=== PATIENT | female | born 1970 | race Caucasian/White ===

== ENCOUNTER 2021-03-14 14:55 | Outpatient (REF) | payer OTHER, SELFPAY ==
[2021-03-19 01:06] LABS: HPV mRNA E6/E7 rflx Not Detected (Not Detected)
== END 2021-03-14 14:56 | disposition home or self-care (01) ==
LOC: HO.LNP 14:55
PROVIDERS: Visit Provider Internal Medicine
DX: Z12.4 Encounter for screening for malignant neoplasm of cervix (principal); Z11.51 Encounter for screening for human papillomavirus (HPV)
CPT/HCPCS: 87624; 88142

== ENCOUNTER 2021-05-06 09:38 | Outpatient (REF) | payer OTHER, SELFPAY ==
--- NOTE | ~2021-05-06 | MM_ITS ---
EXAMINATION: MM SCREENING DIGITAL BREAST TOMOSYNTHESIS, BILATERAL CLINICAL INFORMATION: Screening. Asymptomatic. The lifetime risk of breast cancer based on the Tyrer-Cuzick Model is 12%. COMPARISON: Mammography: 12/20/2018, outside mammography 09/29/2016, 02/03/2008 ([facility], [place], [place]). TECHNIQUE: Digital breast tomosynthesis is performed in both the craniocaudal and mediolateral oblique views along with computer-aided detection (CAD). Synthesized 2D images are generated from the tomosynthesis. Additional left MLO view is provided. FINDINGS: There are scattered areas of fibroglandular density (ACR BI-RADS breast composition Category b). There are no significant masses, abnormal calcifications, or other abnormalities. Parenchymal pattern is similar to prior studies. There is no developing density or architectural abnormality. The axilla and skin contours are unremarkable. No significant changes. MM/MM tomosynthesis screening BI IMPRESSION: No mammographic evidence of malignancy. ASSESSMENT: BI-RADS 1: Negative RECOMMENDATION: Routine annual mammography screening. This patient's information was entered into a reminder system with a target due date for their next mammogram.
== END 2021-05-06 09:39 | disposition home or self-care (01) ==
LOC: HO.MAMMO 09:38
PROVIDERS: PCP Internal Medicine; Visit Provider Internal Medicine
DX: Z12.31 Encounter for screening mammogram for malignant neoplasm of breast (principal)
CPT/HCPCS: 77063; 77067

== ENCOUNTER 2022-05-12 09:56 | Outpatient (REF) | payer OTHER, SELFPAY ==
--- NOTE | ~2022-05-12 | MM_ITS ---
EXAMINATION: MM SCREENING DIGITAL BREAST TOMOSYNTHESIS, BILATERAL CLINICAL INFORMATION: Screening. Asymptomatic. The lifetime risk of breast cancer based on the Tyrer-Cuzick Model is 12%. COMPARISON: Mammography: 05/06/2021, 12/01/2018, 09/29/2016 TECHNIQUE: Digital breast tomosynthesis is performed in both the craniocaudal and mediolateral oblique views along with computer-aided detection (CAD). Synthesized 2D images are generated from the tomosynthesis. FINDINGS: There are scattered areas of fibroglandular density (ACR BI-RADS breast composition Category b). There are no significant masses, abnormal calcifications, or other abnormalities. No developing density or architectural abnormality. Parenchymal pattern is similar to prior exams. The axilla and skin contours are unremarkable. MM/MM tomosynthesis screening BI IMPRESSION: No mammographic evidence of malignancy. ASSESSMENT: BI-RADS 1: Negative RECOMMENDATION: Routine annual mammography screening. This patient's information was entered into a reminder system with a target due date for their next mammogram.
== END 2022-05-12 09:57 | disposition home or self-care (01) ==
LOC: HO.MAMMO 09:56
PROVIDERS: Visit Provider Internal Medicine
DX: Z12.31 Encounter for screening mammogram for malignant neoplasm of breast (principal)
CPT/HCPCS: 77063; 77067

== ENCOUNTER 2023-03-16 11:34 | Outpatient (AMB) | payer OTHER, SELFPAY ==
--- NOTE | 2023-03-16 13:04 | AM.OFFWIN_ITS ---
Intake Vital Signs 03/16/23 13:10 Height 5 ft 6.75 in BP 120/68 Blood Pressure Location Lt brachial Position Sitting Pulse 100 Pulse Source Pulse Oximeter Temp 97.9 F Temp Source Temporal Artery Scan Pulse Oximetry (%) 94 Oxygen Delivery Method Room Air Intake Visit Reasons: EST/persistent cough [phone] Intake Note: pt is here for c/o persistent cough Patient Tobacco Use Status: Never used Tobacco Allergies No Known Allergies Allergy (Verified 03/16/23 13:38) Medication List - Last Reconciled 03/16/23 by Scot Samaniego MD No Known Home Meds Do you need a note to return to daycare/school/sports/work: Yes HPI EST/persistent cough [phone] HPI Details Patient presents for a sick visit. Reporting symptoms of sinus congestion, sore throat and difficulty swallowing. Low-grade fever. No family member is sick. No recent travel. Patient reports symptoms of malaise and fatigue. [facility] Medical History Acquired hallux limitus of both feet Colon cancer screening Ingrown toenail of both feet Hughes's neuroma of both feet Obesity (BMI 30.0-34.9) Osteoarthritis of ankle or foot Family History Sister Mental health disorder Social History Housing: House Patient Tobacco Use Status: Never used Tobacco e-Cigarette/Vaping Use: Never Used Current occupational status: employed Cognitive needs: No Hearing needs: No Vision needs: No Female Reproductive History Menstrual Date of menopause: 01/15/16 Physical Exam Vital Signs: Last Vital Signs Temp 97.9 F 03/16/23 13:10 Pulse 100 03/16/23 13:10 BP 120/68 03/16/23 13:10 Pulse Ox 94 03/16/23 13:10 Oxygen Delivery Method Room Air 03/16/23 13:10 Const General: cooperative and healthy appearing Nutritional Appearance: well nourished Orientation/consciousness: patient oriented x3 Limitations: no limitations HEENT Head: Yes normal to inspection Eyes General: appearance normal, both eyes and all related structures Neck Neck: Yes normal visual inspection Chest Chest palpation & inspection: normal palpation of entire chest wall Resp Effort & Inspection: normal respiratory effort Neuro General: patient oriented x3 Assessment & Plan Assessment & Plan (1) Upper respiratory tract infection: Code(s): J06.9 - Acute upper respiratory infection, unspecified Plan Antibiotics ordered. Increase fluid intake. Tylenol for aches and pains. If symptoms worsen, follow-up here for a recheck. Chest x-ray was reviewed by me personally. No infiltrate seen. Orders: Orders XR chest 2V Today R05.9 - Cough, unspecified Coding Level of Care Code Est Pt Level 4 (73248) Diagnoses Upper respiratory tract infection J06.9
[2023-03-16 13:10] VITALS: BP 120/68; PULSE 100; TEMP 36.6; O2SAT 94
== END 2023-03-16 13:44 | disposition home or self-care (01) ==
PROVIDERS: PCP Internal Medicine; Visit Provider Internal Medicine
DX: J06.9 Acute upper respiratory infection, unspecified (principal)
CPT/HCPCS: 99214

== ENCOUNTER 2023-03-16 13:31 | Outpatient (REF) | payer OTHER, SELFPAY ==
--- NOTE | ~2023-03-16 | XR_ITS ---
EXAMINATION: XR CHEST 2 VIEW CLINICAL INFORMATION: Cough COMPARISON: None TECHNIQUE: PA and lateral views of the chest obtained. FINDINGS: The lungs are clear. There are no pleural effusions. The cardiomediastinal silhouette is normal. XR/XR chest 2V IMPRESSION: No acute cardiopulmonary disease.
== END 2023-03-16 13:32 | disposition home or self-care (01) ==
LOC: HO.HMGCX 13:31
PROVIDERS: PCP Internal Medicine; Visit Provider Internal Medicine
DX: R05.9 Cough, unspecified (principal)
CPT/HCPCS: 71046

== ENCOUNTER 2023-04-01 07:57 | Outpatient (AMB) | payer OTHER, SELFPAY ==
[2023-04-01 08:06] VITALS: BP 110/68; PULSE 86; O2SAT 99; BMI 28.6
--- NOTE | 2023-04-01 08:06 | MHC.PC.OV ---
Vital Signs 04/01/23 08:06 Height 5 ft 6.75 in Weight 181 lb 8 oz BMI 28.6 BP 110/68 Blood Pressure Location Rt brachial Position Sitting Pulse 86 Pulse Source Pulse Oximeter Pulse Oximetry (%) 99 Oxygen Delivery Method Room Air Intake Visit Reasons: Annual PE Intake Note: pt is here for her Annual PE pt wants to wait on flu vaccine Allergies No Known Allergies Allergy (Verified 04/01/23 08:46) Medication List - Last Reviewed 04/01/23 by Blanquita Pierre CMA albuterol sulfate 90 mcg/actuation (Ventolin HFA) 1 inh inhalation QID PRN Tobacco use date assessed: 04/01/23 Dental Screening Dental Screen Date: 04/01/23 Did you have a dental visit in the last 12 months?: Yes Did you have a dental problem in the last 6 months where you did not have access to dental care?: No Was dental information given to patient?: Patient has dentist HPI Annual PE HPI Details 53-year-old lady here today for her physical exam. She is up-to-date with her cervical cancer screening, last done 2020 with negative findings, and she had a mammogram May 2022 with benign findings as well. She states that she had her screening colonoscopy done by Dr. Jose Mehta last year, but no report received from mcdaniel, will request. She still has painful ingrown toenails bilaterally, and Hughes neuroma bilateral with arthritis in ankle, previously seen by Dr. Gillespie. Needs another referral for her to be seen as she missed her appointment last year due to a family emergency. Complains of a painful varicose vein in her left thigh traveling down to her left lower leg. Complains of burning and heaviness in her left leg after walking for extended periods of time. Has a recurrent irritation and itching in her perineal area on and off. Would like a refill on her mometasone cream, which she applies as needed for 1 or 2 days, which affords relief [facility] Medical History Intertrigo labialis Varicose veins of left lower extremity with pain Osteoarthritis of ankle or foot Acquired hallux limitus of both feet Hughes's neuroma of both feet Obesity (BMI 30.0-34.9) Ingrown toenail of both feet Colon cancer screening Family History Sister Mental health disorder Social History Housing: House Patient Tobacco Use Status: Never used Tobacco e-Cigarette/Vaping Use: Never Used Second Hand Smoke Exposure: No Current occupational status: employed Current occupation: TEACHER Current occupational exposures/hazards: Yes Cognitive needs: No Hearing needs: No Vision needs: No Female Reproductive History Menstrual Date of menopause: 01/15/16 Date of last pap smear: 03/17/21 Date of Mammogram: 05/12/22 Questionnaire PHQ-9 Over the last 2 weeks, how often have you been bothered by any of the following problems? 1. Little interest or pleasure in doing things: not at all 2. Feeling down, depressed, or hopeless: not at all 3. Trouble falling or staying asleep, or sleeping too much: not at all 4. Feeling tired or having little energy: not at all 5. Poor appetite or overeating: not at all 6. Feeling bad about yourself - or that you are a failure or have let yourself or your family down: not at all 7. Trouble concentrating on things, such as reading the newspaper or watching television: not at all 8. Moving or speaking so slowly that other people could have noticed. Or the opposite - being so fidgety or restless that you have been moving around a lot more than usual: not at all 9. Thoughts that you would be better off or of hurting yourself in some way: not at all Total score: 0 Depression Screening Interpretation: Negative Depression Screening Done: Yes 38467 - PHQ-9 Billing: Yes Source: Developed by Drs. Hakeem Capellan, Zulema Yang, Cholo Hopson and colleagues, with an educational tanmay from [employer]. Thrive Questionnaire Date Thrive assessed: 04/01/23 I am a: Patient What is your living situation today?: I have a steady place to live Within the past 12 months, did the food you bought not last and you didn't have the money to get more?: Never true Within the past 12 months, did you worry whether your food would run out before you got money to buy more?: Never true Do you have trouble paying for medicines?: No Do you have trouble getting transportation to medical appointments?: No Do you have trouble paying your heating and electricity bill?: No Do you have trouble taking care of your child, family member or friend?: No Do you have trouble with day-to-day activities such as bathing, preparing meals, shopping, managing finances, etc.?: No Are you currently unemployed and looking for a job?: No Are you interested in more education?: No AUDIT C Alcohol Use Questionnaire (AUDIT-C) 1. How often do you have a drink containing alcohol?: Monthly or less 2. How many drinks containing alcohol do you have on a typical day when you are drinking?: 1 or 2 3. How often do you have six or more drinks on one occasion?: Never Total Score: 1 PATRICE-7 AMB Questionnaire PATRICE-7 Date PATRICE - 7 assessed: 04/01/23 Feeling nervous, anxious, or on edge: 0 = Not at all Not being able to stop or control worryin = Not at all Worrying too much about different things: 0 = Not at all Trouble relaxin = Not at all Being so restless that it is hard to sit still: 0 = Not at all Becoming easily annoyed or irritable: 0 = Not at all Feeling afraid as if something awful might happen: 0 = Not at all Total PATRICE-7 score (0-4 normal; 5-9 mild; 10-14 moderate; 15-21 severe): 0 Source: Developed by Drs. Hakeem Capellan, Zulema Yang, Cholo Hopson and colleagues, with an educational tanmay from [employer]. PATRICE-7 Assessment Billing PATRICE-7 Assessment Tool: PATRICE-7 Assessment 92395 Review of Systems Const Denies body aches, Denies fatigue, Denies fever(s), Denies headache(s), Denies weakness and Reports weight loss (Through diet and regular swimming exercises) Eyes Details: She has presbyopia, wears reading glasses Denies change in vision, Denies eye discharge and Denies itchy eyes ENT Reports Normal hearing present, Denies dizziness, Denies headache(s), Denies nasal congestion, Denies nasal discharge and Denies sore throat Card Denies chest pain, Denies lightheadedness, Denies palpitations and Denies dyspnea Resp Denies chest congestion, Reports cough, Denies pain on inspiration, Denies pain with cough, Denies dyspnea and Denies wheezing GI Denies abdominal pain, Denies change in bowel habits and Denies heartburn Denies urinary frequency, Denies dysuria and Denies urinary urgency Musc Reports as per HPI Skin/Breast Reports as per HPI and Denies lesions Neuro Reports Normal hearing present, Denies dizziness, Denies headache(s), Denies Sensory deficit (Neuro) and Denies weakness Psych Reports no additional complaints Endo Denies fatigue, Denies polydipsia, Denies polyuria and Denies palpitations Toribio/Lymph Denies easy bruising Aller/Immun Denies itchy eyes, Denies seasonal rhinorrhea and Denies wheezing Physical exam (Primary Care) Vital Signs: Last Vital Signs Pulse 86 04/01/23 08:06 BP 110/68 04/01/23 08:06 Pulse Ox 99 04/01/23 08:06 Oxygen Delivery Method Room Air 04/01/23 08:06 BMI result Body Mass Index 28.6 Tobacco/Smoking Status: Tobacco use Status Tobacco use date assessed 04/01/23 04/01/23 08:18 Patient Tobacco Use Status Never used Tobacco 04/01/23 08:07 e-Cigarette/Vaping Use Never Used 04/01/23 08:07 Depression Screening Interpretation: Negative Thrive Assessment: Date of Thrive Assessment Date Thrive assessed 03/20/22 04/01/23 08:07 Const General: cooperative, healthy appearing, no acute distress and alert Nutritional Appearance: overweight Orientation/consciousness: patient oriented x3 [facility] Head: Yes normal to inspection, Yes normocephalic and Yes atraumatic Ears: hearing grossly normal bilaterally, external ears normal, TM's normal bilaterally and EAC's normal General nose exam: Normal external nose present and Normal nasal mucous membranes and turbinates present Face and sinus: Yes face symmetric Mouth: Normal oral and palatal mucosa present, lip normal, oropharynx normal and moist mucous membranes Eyes Conjunctivae: conjunctivae normal Sclerae: sclerae normal Pupils: Equal, round and reactive pupils present EOM: EOMs intact bilaterally Neck Neck: Yes full ROM and Yes no lymphadenopathy Thyroid: Thyroid normal Carotids: normal carotid upstroke Lymphatic: no lymphadenopathy noted Chest Chest palpation & inspection: normal inspection of the chest Breast/axilla palpation: normal palpation of the breasts Resp Effort & Inspection: normal respiratory effort and able to speak in complete sentences Auscultation: clear to auscultation bilaterally Cardio Jugular venous distension: no JVD Rate: regular rate Rhythm: regular rhythm Heart sounds: S1 normal heart sound present and S2 normal heart sound present GI Inspection: Yes normal to inspection Palpation (GI): Soft to palpation Auscultation: normal bowel sounds General: Yes no CVA tenderness Back/Spine/Pelvis Back: no CVA tenderness and No back tenderness Skin General skin exam: no rashes or lesions noted Nails: other (Bilateral ingrown toenail) Neuro General: patient oriented x3, gait normal, moves all extremities, no focal motor deficits and CN's II-XI intact bilaterally Cranial nerves: Yes Equal, round and reactive pupils present and Yes Normal hearing present Cognition (Neuro): normal cognition Gait exam (Neuro): Normal gait present Motor exam (neuro): 5/5 motor strength present throughout Sensory Exam: No Sensory deficit (Neuro) Extrem General: Yes full ROM, Yes no pedal edema, Yes normal gait and Yes other (Varicose vein, slightly engorged in left thigh going down left leg) Psych Appearance: grossly normal and well kempt Mental Status: mental status grossly normal Speech and movement: Normal speech and movement present Affect: normal affect Attitude: cooperative Thought process: Normal thought process present Assessment and Plan Assessment & Plan (1) Annual visit for general adult medical examination with abnormal findings: Code(s): Z00.01 - Encounter for general adult medical examination with abnormal findings Plan: Will check appropriate labs. Continue with record dental visit every 6 months and regular eye exams, at least every 2 years. Take adequate calcium in diet and vitamin-D 3 at 2000 IU per cap once a day, in addition to weight-bearing exercises to help maintain good muscle tone and weight control. Instructed to do self-breast exam, and continue to get yearly mammogram, currently up-to-date due again in May 2023. She is up-to-date with her cervical cancer screening done in 2020 with negative findings per will request copy of her colonoscopy report from her Dr. De Leon in [place].. Reminded to get her flu shot and her COVID booster, patient would like to get over her coughing spells 1st before getting the vaccine. Advised also to get her shingles vaccine (2) Osteoarthritis of ankle or foot: Comment: Followed by Dr. Gillespie Code(s): M19.079 - Primary osteoarthritis, unspecified ankle and foot (3) Acquired hallux limitus of both feet: Comment: Followed by Dr. Gillespie Code(s): M20.5X1 - Other deformities of toe(s) (acquired), right foot; M20.5X2 - Other deformities of toe(s) (acquired), left foot (4) Hughes's neuroma of both feet: Comment: Followed by Dr. Gillespie Code(s): G57.63 - Lesion of plantar nerve, bilateral lower limbs Plan: Referred to podiatry, handicap placard completed and given back to patient for submission (5) Ingrown toenail of both feet: Code(s): L60.0 - Ingrowing nail (6) Varicose veins of left lower extremity with pain: Code(s): I83.812 - Varicose veins of left lower extremity with pain Plan: Referred to Dr. Riana Valiente , per patient request, for evaluation treatment of painful varicosities in left lower leg (7) Intertrigo labialis: Code(s): K13.0 - Diseases of lips Plan: Prescription sent for mometasone cream 0.1% to apply once a day sparingly to affected area no more than 10 days at a time. Pair screening trial time (8) Cough due to bronchospasm: Code(s): J98.01 - Acute bronchospasm Plan: Refill sent for Ventolin inhaler to use as needed for episodes of bronchospasm. Advised also try taking [id number] Mucinex DM to take as needed for her cough peer Orders: Orders Aspartate Amino Transferase Today M19.079 - Primary osteoarthritis, unspecified ankle and foot, Z00.01 - Encounter for general adult medical examination with abnormal findings, Z13.1 - Encounter for screening for diabetes mellitus, Z13.220 - Encounter for screening for lipoid disorders Basic Metabolic Panel Fasting Today M19.079 - Primary osteoarthritis, unspecified ankle and foot, Z00.01 - Encounter for general adult medical examination with abnormal findings, Z13.1 - Encounter for screening for diabetes mellitus, Z13.220 - Encounter for screening for lipoid disorders Vitamin D 25-OH Total Today M19.079 - Primary osteoarthritis, unspecified ankle and foot, Z00.01 - Encounter for general adult medical examination with abnormal findings, Z13.1 - Encounter for screening for diabetes mellitus, Z13.220 - Encounter for screening for lipoid disorders Alanine Aminotransferase Today M19.079 - Primary osteoarthritis, unspecified ankle and foot, Z00.01 - Encounter for general adult medical examination with abnormal findings, Z13.1 - Encounter for screening for diabetes mellitus, Z13.220 - Encounter for screening for lipoid disorders Lipid Panel Today M19.079 - Primary osteoarthritis, unspecified ankle and foot, Z00.01 - Encounter for general adult medical examination with abnormal findings, Z13.1 - Encounter for screening for diabetes mellitus, Z13.220 - Encounter for screening for lipoid disorders Referrals Podiatry Referral G57.63 - Lesion of plantar nerve, bilateral lower limbs, L60.0 - Ingrowing nail, M19.079 - Primary osteoarthritis, unspecified ankle and foot, M20.5X1 - Other deformities of toe(s) (acquired), right foot, M20.5X2 - Other deformities of toe(s) (acquired), left foot Vascular Surgery Referral I83.812 - Varicose veins of left lower extremity with pain Medications: New mometasone 0.1% 1 appl topical DAILY PRN 45 grams 0RF skin irritation/itching K13.0 - Diseases of lips Refilled albuterol sulfate 90 mcg/actuation (Ventolin HFA) 1 inh inhalation QID PRN 8.5 grams 1RF shortness of breath or wheezing Coding Level of Care Code Est Pt Prev Care 40-64y(32104) Diagnoses Annual visit for general adult medical examination with abnormal findings Z00.01 Osteoarthritis of ankle or foot M19.079 Acquired hallux limitus of both feet M20.5X1; M20.5X2 Hughes's neuroma of both feet G57.63 Ingrown toenail of both feet L60.0 Varicose veins of left lower extremity with pain I83.812 Intertrigo labialis K13.0 Cough due to bronchospasm J98.01 Additional Codes PATRICE-7 Assessment Billing - PATRICE-7 Assessment Tool: PATRICE-7 Assessment 57143 ([id number])
== END 2023-04-01 09:06 | disposition home or self-care (01) ==
PROVIDERS: Visit Provider Internal Medicine
DX: Z00.00 Encounter for general adult medical examination without abnormal findings (principal); M19.079 Primary osteoarthritis, unspecified ankle and foot; M20.5X1 Other deformities of toe(s) (acquired), right foot; M20.5X2 Other deformities of toe(s) (acquired), left foot; G57.63 Lesion of plantar nerve, bilateral lower limbs; L60.0 Ingrowing nail; I83.812 Varicose veins of left lower extremity with pain; K13.0 Diseases of lips; J98.01 Acute bronchospasm
CPT/HCPCS: 99396

== ENCOUNTER 2023-04-15 09:06 | Outpatient (REF) | payer OTHER, SELFPAY ==
[2023-04-15 12:36] LABS: Alanine Aminotransferase 9 U/L (0-31); Anion Gap 12 (12-20); Aspartate Amino Transferase 17 U/L (5-31); Blood Urea Nitrogen 16 mg/dL (9-16); Calcium 9.4 mg/dL (8.4-10.2); Carbon Dioxide 25 mmol/L (22-29); Chloride 105 mmol/L (96-108); Cholesterol 189 mg/dL (<200); Estimated Glomerular Filt Rate > 60; Glucose Fasting 87 mg/dL (60-99); HDL Cholesterol 56 mg/dL (>40); LDL Cholesterol Calculated 117 mg/dL (<100); Potassium 4.1 mmol/L (3.3-5.1); Sodium 138 mmol/L (135-145); Triglycerides 80 mg/dL (<150)
[2023-04-15 12:37] LABS: Vitamin D 25-OH Total 21.9 ng/mL (>30)
== END 2023-04-15 09:07 | disposition home or self-care (01) ==
LOC: HO.HMGCLDS 09:06
PROVIDERS: PCP Internal Medicine; Visit Provider Internal Medicine
DX: Z00.01 Encounter for general adult medical examination with abnormal findings (principal); Z13.220 Encounter for screening for lipoid disorders; Z13.1 Encounter for screening for diabetes mellitus; M19.079 Primary osteoarthritis, unspecified ankle and foot
CPT/HCPCS: 36415; 80048; 80061; 82306; 84450; 84460

== ENCOUNTER 2023-06-30 09:31 | Outpatient (REF) | payer OTHER, SELFPAY ==
--- NOTE | ~2023-06-30 | MM_ITS ---
EXAMINATION: MM SCREENING DIGITAL BREAST TOMOSYNTHESIS, BILATERAL CLINICAL INFORMATION: Screening. Asymptomatic. COMPARISON: Mammography: 2019. This study is compared with prior exams dating back to TECHNIQUE: Digital breast tomosynthesis is performed in both the craniocaudal and mediolateral oblique views along with computer-aided detection (CAD). Synthesized 2D images are generated from the tomosynthesis. FINDINGS: There are scattered areas of fibroglandular density (ACR BI-RADS breast composition Category b). There are no significant masses, abnormal calcifications, or other abnormalities. MM/MM tomosynthesis screening BI IMPRESSION: No mammographic evidence of malignancy. ASSESSMENT: BI-RADS BI-RADS 1 - Negative RECOMMENDATION: Routine annual mammography screening. 1 year F/U This examination should not preclude the clinical evaluation of a suspicious palpable abnormality. This patient's information was entered into a reminder system with a target due date for their next mammogram.
== END 2023-06-30 09:32 | disposition home or self-care (01) ==
LOC: HO.MAMMO 09:31
PROVIDERS: PCP Internal Medicine; Visit Provider Internal Medicine
DX: Z12.31 Encounter for screening mammogram for malignant neoplasm of breast (principal)
CPT/HCPCS: 77063; 77067

== ENCOUNTER → 2023-06-30 09:45 | Outpatient (BNV) | payer OTHER, SELFPAY | PROVIDERS: PCP Internal Medicine; Visit Provider Radiology Diagnostic Radiology | DX: Z12.31 Encounter for screening mammogram for malignant neoplasm of breast (principal) | CPT/HCPCS: 77063; 77067 ==

== ENCOUNTER 2024-06-20 09:26 | Outpatient (AMB) | payer OTHER, SELFPAY ==
--- NOTE | 2024-06-20 09:45 | AM.OFFWIN_ITS ---
Intake Vital Signs 06/20/24 09:47 BMI Reason not done Patient refused/unable BP 112/74 Blood Pressure Location Rt brachial Position Sitting Pulse 97 Pulse Source Pulse Oximeter Temp 98.7 F Temp Source Oral Pulse Oximetry (%) 97 Oxygen Delivery Method Room Air Intake Visit Reasons: EP upper respiratory congested, lack of sleep Intake Note: Patient here for cough after having the flu two weeks ago and cough just has not improved. Patient Tobacco Use Status: Never used Tobacco Allergies No Known Allergies Allergy (Verified 06/20/24 09:48) Do you need a note to return to daycare/school/sports/work: No HPI HPI Comments History of Present Illness Details History - The patient is a 54-year-old female pr esenting with persistent cough and congestion following a self diagnosis of influenza (exposed to a colleague who had a confirmed case). - Initial symptoms began two weeks ago, and the patient has experienced a lack of significant improvement leading to functional limitations. - Self-management efforts have been exte nsive, using [id number] medications and non-pharmacological interventions with limited symptomatic relief. - The patient?s clinical history is nega tive for chronic respiratory conditions such as asthma or COPD, and there is no history of tobacco use or vaping. - Denies JOHNSON, ear pain or sinus pain. Physical Exam General: Cooperative, healthy appearing, comfortable and no acute distress Orientation/consciousness: Patient oriented x3 Limitations: No limitations Head: Normal to inspection, but reports headache Ears: Hearing grossly normal bilaterally, external ears normal and TM's normal bilaterally Nose: Normal external nose present, Normal nares present and No nasal discharge present Face and sinus: Normal facial exam and Yes sinuses nontender Mouth: Normal oral and palatal mucosa present and moist mucous membranes Throat: Yes tonsils normal, Yes uvula midline. Posterior oropharynx erythema Eyes: Appearance normal, both eyes and all related structures Neck: Normal visual inspection Respiratory: Clear to auscultation bilaterally. Normal respiratory effort, able to speak in complete sentences, Actively coughing, no respiratory distress, not tachypneic, no tripod positioning and no use of accessory muscles Cardiovascular: Regular rate and rhythm. Normal S1 and S2 Skin: No rashes or lesions noted Neuro: Patient oriented x3 Extremities: Normal to inspection and Yes no clubbing, cyanosis or edema [facility] Medical History Intertrigo labialis Varicose veins of left lower extremity with pain Osteoarthritis of ankle or foot Acquired hallux limitus of both feet Hughes's neuroma of both feet Obesity (BMI 30.0-34.9) Ingrown toenail of both feet Colon cancer screening Family History Sister Mental health disorder Social History Housing: House Patient Tobacco Use Status: Never used Tobacco e-Cigarette/Vaping Use: Never Used Second Hand Smoke Exposure: No Current occupational status: employed Current occupation: TEACHER Current occupational exposures/hazards: Yes Cognitive needs: No Hearing needs: No Vision needs: No Female Reproductive History Menstrual Date of menopause: 01/15/16 Review of Systems Const All systems reviewed & are unremarkable except as noted in HPI and below Physical Exam Vital Signs: Last Vital Signs Temp 98.7 F 06/20/24 09:47 Pulse 97 06/20/24 09:47 BP 112/74 06/20/24 09:47 Pulse Ox 97 06/20/24 09:47 Oxygen Delivery Method Room Air 06/20/24 09:47 Assessment & Plan Assessment & Plan (1) Cough: Code(s): R05.9 - Cough, unspecified Qualifiers: Cough type: acute Qualified Code(s): R05.1 - Acute cough Plan: The patient presents with persistent cough and congestion likely secondary to an upper respiratory tract infection following influenza. Recommended treatment includes azithromycin Z-Adam to address potential bacterial superinfection, such as walking pneumonia. Benzonatate Tessalon Perles is included as a cough suppressant for nighttime relief, alongside [id number]-rbhhmvv Benadryl for its sedative and anticholinergic effects. An antihistamine/decongestant such as Madelyn-D is suggested for nasal congestion. Advil is advised for its anti- inflammatory benefits to assist with symptom management. This treatment plan aims to address possible bacterial components while providing symptom relief, consistent with the patient?s history and clinical findings. Patient was informed and verbally consented to the use of an ambient scribe for clinic note documentation during this visit Medications: New azithromycin For 250 mg dose pack: take 500 mg today (day 1), then 250 mg for 4 days (days 2-5) PO 6 tabs 0RF benzonatate 200 mg PO TID PRN 14 caps 0RF cough Coding Level of Care Code Est Pt Level 3 (92853) Diagnoses Acute cough R05.1 Cough type: acute
[2024-06-20 09:47] VITALS: BP 112/74; PULSE 97; TEMP 37.1; O2SAT 97
--- OUTSIDE RECORDS SUMMARY | 2024-06-20 10:12 | XMS_ITS ---
Author Organization [facility] Address [address] [place] [address] Care Team Providers Care Delinquency Prevention Officer Name Role Phone Leonila GÓMEZ, Piper Peña Primary Care Provider Un available Black, Louise Unavailable [phone] REASON FOR VISIT cx appt 02/21/24 and 03/06/24 Encounters Encounter Location Date Provider Diagnosis [facility] [address] [place] [address] 12/06/2023 Louise Black Plan Of Treatment No Information Progress Notes * CHRISTINA KristinamayurDOB:1970 ( 53 yo F)Acc No.[id number]:12/06/2023 Patient:?Jeri Vasquez :1970???Age:53 Y???Sex:Female Address:[address] [place] [address], [address] * true * Date:? Generated for Farhan guzmán/Raffi/eTransmitting on:?06/20/2024 10:11 AM EST
--- OUTSIDE RECORDS SUMMARY | 2024-06-20 10:12 | XMS_ITS | Continuity of Care Document ---
Author Name [facility] Organization [facility] Care Team Providers Care Quenching Machine Operator Name Role Phone [facility] Unavailable Unavailable Medications Combined list of outpatient medications from Department of Defense and Veterans Affairs facilities.Medications provided include 1) outpatient medications from the last 15 months, and 2) patient-reported medications. Medication Details Route Status Patient Instructions Prescription Expires Prescription Number Last Dispense Date Ordering Provider Order Date Order Qty Source CEPHALEXIN (CEPHALEXIN MONOHYDRATE ), 500 MG, CAPSULE, ORAL, [employer], 500 ea. BOTTLE Active [id number] 2023 20 Pharmac y Data Transac tion Service Facilit y DOXYCYCLINE HYCLATE (DOXYCYCLIN E HYCLATE), 100 MG, CAPSULE, ORAL, JONATHAN,Yulisa NC., 500 ea. BOTTLE Active [id number] 2023 10 Pharmac y Data Transac tion Service Facilit y Social History Combined list of available smoking, tobacco, and other social history from Department of Defense and Veterans Affairs facilities. Social History Type Response Date Comment Sourc e This section is an empty social history section. [facility]
--- OUTSIDE RECORDS SUMMARY | 2024-06-20 10:12 | XMS_ITS ---
Author Organization [facility] Address [address] [place] [id number] Care Team Providers Care Food Service Substitute Name Role Phone Leonila GÓMEZ, Piper Peña Primary Care Provider Un available Louise Gillespie [phone] Encounters Encounter Location Date Provider Diagnosis [address] [address] 03/06/2024 Louise Gillespie Plan Of Treatment No Information Progress Notes * Jeri VASQUEZDOB:1970 ( 54 yo F)Acc No.[id number]:03/06/2024 Progress Notes Patient:Jeri GAN Provider:?Louise Gillespie DPM :1970???Age:54 Y???Sex:Female D ate:03/06/2024 Address:[address] [place], [place] [id number] Pcp:Brittney Triana Subjective: * Chief Complaints: * ??? * Medical History:? Objective: * Vitals:? Assessment: Plan: * Treatment: * Images: * The named appointment provid er may or may not be the originator of this progress note, and it is not deemed complete until electronically signed by the appointment provider. Sign off status: Pending * Provider:?Louise Gillespie DPM Date:?2023 Generated for Farhan guzmán/Raffi/eTransmitting on:?06/20/2024 10:11 AM EST
== END 2024-06-20 10:40 | disposition home or self-care (01) ==
PROVIDERS: PCP Internal Medicine; Visit Provider Physician Assistant
DX: R05.1 Acute cough (principal)

== ENCOUNTER → 2024-06-20 09:26 | Outpatient (BNVA) | payer OTHER, SELFPAY | PROVIDERS: PCP Internal Medicine | DX: R05.1 Acute cough (principal) | CPT/HCPCS: 99212 ==

== ENCOUNTER 2024-06-26 12:39 | Outpatient (REF) | payer OTHER, SELFPAY ==
--- OUTSIDE RECORDS SUMMARY | 2024-06-26 18:38 | XMS_ITS | Continuity of Care Document ---
Author Name [facility] Organization [facility] Care Team Providers Care Rn Primary Care Name Role Phone [facility] Unavailable Unavailable Medications Combined list of outpatient [...] ORAL, [employer], 500 ea. BOTTLE Active [id number] 4 2023 20 Pharmac y Data Transac tion Service Facilit y DOXYCYCLINE HYCLATE (DOXYCYCLIN E HYCLATE), 100 MG, CAPSULE, ORAL, JONATHAN,Yulisa NC., 500 ea. BOTTLE Active [id number] 4 2023 10 Pharmac y Data Transac tion Service Facilit y Social History Combined list of available smoking, tobacco, and other social history from Department of Defense and Veterans Affairs facilities. Social History Type Response Date Comment Sourc e This section is an empty social history section. [facility]
== END 2024-06-26 12:40 | disposition home or self-care (01) ==
LOC: HO.LNP 12:39
PROVIDERS: Visit Provider Internal Medicine
DX: Z13.89 Encounter for screening for other disorder (principal)

== ENCOUNTER 2024-06-26 12:39 | Outpatient (REF) | payer OTHER, SELFPAY ==
--- OUTSIDE RECORDS SUMMARY | 2024-06-26 16:00 | XMS_ITS | Continuity of Care Document ---
Author Name [facility] Organization [facility] Care Team Providers Care Welding Machine Operator Helper Arc Name Role Phone [facility] Unavailable Unavailable Medications Combined list of outpatient [...] ORAL, [employer], 500 ea. BOTTLE Active [id number] 4 2023 20 Pharmac y Data Transac tion Service Facilit y DOXYCYCLINE HYCLATE (DOXYCYCLIN E HYCLATE), 100 MG, CAPSULE, ORAL, JONATHAN,Yulisa NC., 500 ea. BOTTLE Active [id number] 4 2023 10 Pharmac y Data Transac tion Service Facilit y Social History Combined list of available smoking, tobacco, and other social history from Department of Defense and Veterans Affairs facilities. Social History Type Response Date Comment Sourc e This section is an empty social history section. [facility]
[2024-07-04 10:27] LABS: HPV Genotype 16 Negative (Negative); HPV Genotype 18 Negative (Negative); HPV High Risk Negative (Negative)
== END 2024-06-26 12:40 | disposition home or self-care (01) ==
LOC: HO.LNP 12:39
PROVIDERS: PCP Internal Medicine; Visit Provider Internal Medicine
DX: Z00.01 Encounter for general adult medical examination with abnormal findings (principal); L60.0 Ingrowing nail; I83.812 Varicose veins of left lower extremity with pain; G57.63 Lesion of plantar nerve, bilateral lower limbs; M20.5X1 Other deformities of toe(s) (acquired), right foot; M20.5X2 Other deformities of toe(s) (acquired), left foot; Z71.89 Other specified counseling; Z12.4 Encounter for screening for malignant neoplasm of cervix; Z11.51 Encounter for screening for human papillomavirus (HPV)
CPT/HCPCS: 87626; 88175; 96127

== ENCOUNTER 2024-06-26 12:39 | Outpatient (AMB) | payer OTHER, SELFPAY ==
--- NOTE | 2024-06-26 13:30 | MHC.PC.OV ---
Vital Signs 06/26/24 13:36 Height 5 ft 6.75 in Weight 189 lb BMI 29.8 BP 132/80 Blood Pressure Location Lt brachial Position Sitting Respiration 16 Pulse 79 Pulse Source Pulse Oximeter Temp 97.9 F Temp Source Oral Pulse Oximetry (%) 97 Oxygen Delivery Method Room Air Intake Visit Reasons: Annual PE Intake Note: Pt is here today for her PE: Last mammogram 06/30/23, papsmear 03/17/21 Allergies No Known Allergies Allergy (Verified 06/26/24 13:47) Medication List - Last Reconciled 06/26/24 by Piper Keen MD cholecalciferol (vitamin D3) 50 mcg PO DAILY turmeric root extract 500 mg PO DAILY Tobacco use date assessed: 06/26/24 Dental Screening Dental Screen Date: 06/26/24 Did you have a dental visit in the last 12 months?: Yes Did you have a dental problem in the last 6 months where you did not have access to dental care?: No Was dental information given to patient?: Patient has dentist HPI Annual PE HPI Details 54-year-old lady here today for physical exam. She is up-to-date with her screening mammogram, already has appointment scheduled next month. Last Pap smear was done in 2020. She has been feeling well except for presence of bilateral toenails. Patient unsatisfied with the treatment she received from her mill order scheduler after removal of ingrown toenail on left big toe and would like a 2nd opinion. She also has been having painful bunions in both feet. Currently being seen by vascular surgery at [facility] for painful varicosities on left leg. Patient states that she is waiting for a referral to a vein surgeon for further treatment She is up-to-date with colon cancer screening, had it done by Dr. Jones in 2022 which showed presence of sigmoid diverticulosis internal hemorrhoids, repeat due again in 5 years due to positive family history for colon cancer. [facility] Medical History Varicose veins of left lower extremity with pain Osteoarthritis of ankle or foot Acquired hallux limitus of both feet Hughes's neuroma of both feet Obesity (BMI 30.0-34.9) Ingrown toenail of both feet Colon cancer screening Family History Sister Mental health disorder Social History Housing: House Patient Tobacco Use Status: Never used Tobacco e-Cigarette/Vaping Use: Never Used Second Hand Smoke Exposure: No Current occupational status: employed Current occupation: TEACHER Current occupational exposures/hazards: Yes Cognitive needs: No Hearing needs: No Vision needs: No Female Reproductive History Menstrual Date of menopause: 01/15/16 Questionnaire PHQ-9 Over the last 2 weeks, how often have you been bothered by any of the following problems? 1. Little interest or pleasure in doing things: not at all 2. Feeling down, depressed, or hopeless: not at all 3. Trouble falling or staying asleep, or sleeping too much: not at all 4. Feeling tired or having little energy: not at all 5. Poor appetite or overeating: not at all 6. Feeling bad about yourself - or that you are a failure or have let yourself or your family down: not at all 7. Trouble concentrating on things, such as reading the newspaper or watching television: not at all 8. Moving or speaking so slowly that other people could have noticed. Or the opposite - being so fidgety or restless that you have been moving around a lot more than usual: not at all 9. Thoughts that you would be better off or of hurting yourself in some way: not at all Total score: 0 Depression Screening Interpretation: Negative Depression Screening Done: Yes 53532 - PHQ-9 Billing: Yes Source: Developed by Drs. Hakeem Capellan, Zulema Yang, Cholo Hopson and colleagues, with an educational tanmay from [employer]. Thrive Questionnaire Date Thrive assessed: 06/26/24 I am a: Patient What is your living situation today?: I have a steady place to live Within the past 12 months, did the food you bought not last and you didn't have the money to get more?: Never true Within the past 12 months, did you worry whether your food would run out before you got money to buy more?: Never true Do you have trouble paying for medicines?: No Do you have trouble getting transportation to medical appointments?: No Do you have trouble paying your heating and electricity bill?: No Do you have trouble taking care of your child, family member or friend?: No Do you have trouble with day-to-day activities such as bathing, preparing meals, shopping, managing finances, etc.?: No Are you currently unemployed and looking for a job?: No Are you interested in more education?: No Please select the resources that you would like help with: None Currently or been in a relationship where the following occur: No concerns reported THRIVE Score: 0 AUDIT C Alcohol Use Questionnaire (AUDIT-C) 1. How often do you have a drink containing alcohol?: Never Total Score: 0 PATRICE-7 AMB Questionnaire PATRICE-7 Date PATRICE - 7 assessed: 06/26/24 Feeling nervous, anxious, or on edge: 0 = Not at all Not being able to stop or control worryin = Not at all Worrying too much about different things: 0 = Not at all Trouble relaxin = Not at all Being so restless that it is hard to sit still: 0 = Not at all Becoming easily annoyed or irritable: 0 = Not at all Feeling afraid as if something awful might happen: 0 = Not at all Total PATRICE-7 score (0-4 normal; 5-9 mild; 10-14 moderate; 15-21 severe): 0 Source: Developed by Drs. Hakeem Capellan, Zulema Yang, Cholo Hopson and colleagues, with an educational tanmay from [employer]. PATRICE-7 Assessment Billing PATRICE-7 Assessment Tool: PATRICE-7 Assessment 49717 Review of Systems Const Denies body aches, Denies fatigue, Denies fever(s), Denies headache(s) and Denies weakness Eyes Details: She has presbyopia, wears reading glasses Denies change in vision ENT Reports Normal hearing present, Denies dizziness, Denies headache(s), Denies nasal congestion, Denies nasal discharge and Denies sore throat Card Denies chest pain, Denies lightheadedness, Denies palpitations and Denies dyspnea Resp Denies chest congestion, Reports cough, Denies pain on inspiration, Denies pain with cough, Denies dyspnea and Denies wheezing GI Denies abdominal pain, Denies change in bowel habits and Denies heartburn Denies urinary frequency, Denies dysuria and Denies urinary urgency Musc Reports as per HPI Skin/Breast Reports as per HPI Neuro Reports Normal hearing present, Denies dizziness, Denies headache(s), Denies Sensory deficit (Neuro) and Denies weakness Psych Reports no additional complaints Endo Denies fatigue, Denies polydipsia, Denies polyuria and Denies palpitations Toribio/Lymph Denies easy bruising Aller/Immun Denies seasonal rhinorrhea and Denies wheezing Physical exam (Primary Care) Vital Signs: Last Vital Signs Temp 97.9 F 06/26/24 13:36 Pulse 79 06/26/24 13:36 Resp 16 06/26/24 13:36 BP 132/80 06/26/24 13:36 Pulse Ox 97 06/26/24 13:36 Oxygen Delivery Method Room Air 06/26/24 13:36 BMI result Body Mass Index 29.8 Tobacco/Smoking Status: Tobacco use Status Tobacco use date assessed 06/26/24 06/26/24 13:31 Patient Tobacco Use Status Never used Tobacco 06/26/24 13:31 e-Cigarette/Vaping Use Never Used 06/26/24 13:31 PHQ-9: PHQ-9 Score PHQ-9: Total score 0 06/26/24 23:25 Depression Screening Interpretation: Negative Thrive Assessment: Date of Thrive Assessment Date Thrive assessed 06/26/24 06/26/24 13:42 Currently or been in a relationship where the following occur: No concerns reported Const General: healthy appearing, no acute distress and alert Nutritional Appearance: overweight Orientation/consciousness: patient oriented x3 HENMT Head: Yes normocephalic Ears: hearing grossly normal bilaterally, external ears normal, TM's normal bilaterally and EAC's normal General nose exam: Normal external nose present and Normal nasal mucous membranes and turbinates present Face and sinus: Yes face symmetric Mouth: Normal oral and palatal mucosa present, oropharynx normal and moist mucous membranes Eyes Conjunctivae: conjunctivae normal Sclerae: sclerae normal Pupils: Equal, round and reactive pupils present EOM: EOMs intact bilaterally Neck Neck: Yes full ROM and Yes no lymphadenopathy Thyroid: Thyroid normal Carotids: normal carotid upstroke Lymphatic: no lymphadenopathy noted Chest Chest palpation & inspection: normal inspection of the chest Breast/axilla palpation: normal palpation of the breasts Resp Effort & Inspection: normal respiratory effort and able to speak in complete sentences Auscultation: clear to auscultation bilaterally Cardio Jugular venous distension: no JVD Rate: regular rate Rhythm: regular rhythm Heart sounds: S1 normal heart sound present and S2 normal heart sound present GI Inspection: Yes normal to inspection Palpation (GI): Soft to palpation Auscultation: normal bowel sounds General: Yes bladder normal to palpation and Yes no CVA tenderness External Female Exam: normal external appearance and normal appearance of the urethra Speculum Exam - Vagina: normal palpation and vagina atrophic Speculum Exam - Cervix: normal appearance of the cervix, normal palpation and Patulous cervix present Bimanual exam- vagina & uterus: normal palpation, bladder normal to palpation, normal palpation and non-tender Bimanual Exam- Adnexa, other: normal adnexae, no masses, normal and No adnexal tenderness Back/Spine/Pelvis Back: no CVA tenderness and No back tenderness Skin General skin exam: no rashes or lesions noted Nails: other (Bilateral ingrown toenail) Neuro General: patient oriented x3, gait normal, moves all extremities, no focal motor deficits and CN's II-XI intact bilaterally Cranial nerves: Yes Equal, round and reactive pupils present and Yes Normal hearing present Cognition (Neuro): normal cognition Gait exam (Neuro): Normal gait present Motor exam (neuro): 5/5 motor strength present throughout Sensory Exam: No Sensory deficit (Neuro) Extrem Other: Bilateral bunion present General: Yes full ROM, Yes no pedal edema, Yes normal gait and Yes other (Varicose vein, slightly engorged in left thigh going down left leg) Psych Appearance: grossly normal and well kempt Mental Status: mental status grossly normal Speech and movement: Normal speech and movement present Affect: normal affect Attitude: cooperative Thought process: Normal thought process present Coding Level of Care Code Est Pt Prev Care 40-64y(81805) Diagnoses Annual visit for general adult medical examination with abnormal findings Z00.01 Screening for malignant neoplasm of cervix Z12.4 Encounter for counseling regarding advance directives Z71.89 Ingrown toenail of both feet L60.0 Varicose veins of left lower extremity with pain I83.812 Hughes's neuroma of both feet G57.63 Acquired hallux limitus of both feet M20.5X1; M20.5X2 Additional Codes PHQ-9 - 08351 - PHQ-9 Billing: Yes ([id number]) PATRICE-7 Assessment Billing - PATRICE-7 Assessment Tool: PATRICE-7 Assessment 31241 ([id number]) Assessment & Plan Assessment & Plan (1) Annual visit for general adult medical examination with abnormal findings: Code(s): Z00.01 - Encounter for general adult medical examination with abnormal findings Plan: Will check appropriate labs. Continue with regular dental visit every 6 months and regular eye exams, at least every 2 years. Take adequate calcium in diet and vitamin-D 3 at 2000 IU per cap once a day, in addition to weight-bearing exercises to help maintain good muscle tone and weight control. Instructed to do self-breast exam, and continue with yearly mammogram, already scheduled. Cervical cancer screening done today. Has had COVID vaccines in the past, but has not yet had her flu vaccine this year, recently contract with the flu approximately a month ago. Up-to-date with her Tdap. Reminded patient that she is eligible to get vaccinated against shingles. Had a screening colonoscopy done in [address] Jones which showed presence of sigmoid diverticulosis and internal hemorrhoids. Repeat due again in 2026 due to positive family history for colon cancer (2) Screening for malignant neoplasm of cervix: Code(s): Z12.4 - Encounter for screening for malignant neoplasm of cervix Plan: Cervical cancer screening done today as well as pelvic exam (3) Encounter for counseling regarding advance directives: Code(s): Z71.89 - Other specified counseling Plan: Initiated the conversation about Advanced Directives. Advanced Directives help patients prepare for current and future decisions about their medical treatment and place of care. Discussed with patient that it is a process where a patients current condition and prognosis are reviewed, their wishes for information regarding their illness are elicited, and likely medical dilemmas are presented and options discussed. Healthcare proxy form completed today. The form can be amended as needed, reviewed yearly and make changes as needed (4) Ingrown toenail of both feet: Code(s): L60.0 - Ingrowing nail Category: Medical Plan: Patient will be calling her insurance to see who she can be referred due for 2nd opinion regarding her ingrown toenail (5) Varicose veins of left lower extremity with pain: Code(s): I83.812 - Varicose veins of left lower extremity with pain Category: Medical Plan: Waiting for appointment to be seen by vein surgeon (6) Saul's neuroma of both feet: Comment: Followed by Dr. Gillespie Code(s): G57.63 - Lesion of plantar nerve, bilateral lower limbs Category: Medical Plan: Will be referred to Podiatry, waiting to see who is affiliated with her insurance (7) Acquired hallux limitus of both feet: Comment: Followed by Dr. Gillespie Code(s): M20.5X1 - Other deformities of toe(s) (acquired), right foot; M20.5X2 - Other deformities of toe(s) (acquired), left foot Category: Medical Plan: Patient will check with her insurance regarding who she can see for a podiatry 2nd opinion. Orders: Orders Pap Smear Today Z12.4 - Encounter for screening for malignant neoplasm of cervix Lipid Panel Today Z00.01 - Encounter for general adult medical examination with abnormal findings, Z13.1 - Encounter for screening for diabetes mellitus, Z13.220 - Encounter for screening for lipoid disorders, Z71.89 - Other specified counseling Alanine Aminotransferase Today Z00.01 - Encounter for general adult medical examination with abnormal findings, Z13.1 - Encounter for screening for diabetes mellitus, Z13.220 - Encounter for screening for lipoid disorders, Z71.89 - Other specified counseling Basic Metabolic Panel Fasting Today Z00.01 - Encounter for general adult medical examination with abnormal findings, Z13.1 - Encounter for screening for diabetes mellitus, Z13.220 - Encounter for screening for lipoid disorders, Z71.89 - Other specified counseling Vitamin D 25-OH Total Today Z00.01 - Encounter for general adult medical examination with abnormal findings, Z13.1 - Encounter for screening for diabetes mellitus, Z13.220 - Encounter for screening for lipoid disorders, Z71.89 - Other specified counseling Aspartate Amino Transferase Today Z00.01 - Encounter for general adult medical examination with abnormal findings, Z13.1 - Encounter for screening for diabetes mellitus, Z13.220 - Encounter for screening for lipoid disorders, Z71.89 - Other specified counseling
[2024-06-26 13:36] VITALS: BP 132/80; PULSE 79; RESP 16; TEMP 36.6; O2SAT 97; BMI 29.8
--- OUTSIDE RECORDS SUMMARY | 2024-06-26 14:19 | XMS_ITS | Continuity of Care Document ---
Author Name [facility] Organization [facility] Care Team Providers Care Table Tender Name Role Phone [facility] Unavailable Unavailable Medications Combined list of outpatient [...] ORAL, [employer], 500 ea. BOTTLE Active [id number] 4 2023 20 Pharmac y Data Transac tion Service Facilit y DOXYCYCLINE HYCLATE (DOXYCYCLIN E HYCLATE), 100 MG, CAPSULE, ORAL, JONATHAN,Yulisa NC., 500 ea. BOTTLE Active [id number] 4 2023 10 Pharmac y Data Transac tion Service Facilit y Social History Combined list of available smoking, tobacco, and other social history from Department of Defense and Veterans Affairs facilities. Social History Type Response Date Comment Sourc e This section is an empty social history section. [facility]
--- OUTSIDE RECORDS SUMMARY | 2024-06-26 14:19 | XMS_ITS ---
Author Organization [facility] Address [address] [place] [address] Care Team Providers Care Laborer Car Barn Name Role Phone Leonila GÓMEZ, Piper Peña Primary Care Provider Un available Black, Louise Unavailable [phone] REASON FOR VISIT cx appt 02/21/24 and 03/06/24 Encounters Encounter Location Date Provider Diagnosis [facility] [address] [place] [address] 12/06/2023 Louise Black Plan Of Treatment No Information Progress Notes * CHRISTINA KristinamayurDOB:1970 ( 53 yo F)Acc No.[id number]:12/06/2023 Patient:?Jeri Vasquez :1970???Age:53 Y???Sex:Female Address:[address] [place] [address], [address] * true * Date:? Generated for Farhan guzmán/Raffi/eTransmitting on:?06/26/2024 02:19 PM EST
--- OUTSIDE RECORDS SUMMARY | 2024-06-26 14:19 | XMS_ITS | Patient Health Record ---
Author Organization [facility] Address [address] [facility] [place] [address] Care Team Providers Care Installation & Maintenance Executive Name Role Phone Leonila GÓMEZ, Piper Peña Primary Care Provider Un available Black, Louise Unavailable [phone] Allergies No Known Allergies Reason For Referral No Information Medications Medication SIG (Take, Route, Frequency, Duration) Notes Start Date End Date Status Doxycycline Hyclate 100 MG 1 capsule Orally Once a day for 10 day(s) 10/25/2023 Active Cephalexin 500 MG 1 capsule Orally twi ce a day for 10 days 10/11/2023 Active Vitamin B Complex No t-Taking Co Q 10 Not-Taking Multi For Her Active Social History Tobacco Use: Social History Observation Description Date Details (start date - stop date) Never Smoker NA - NA Tobacco Use/Smoking Question Answer Notes Are you a: nonsmoker Additional Findings: Tobacco Non-User Current no n-smoker Alcohol Screen Question Answer Notes Did you have a drink contain ing alcohol in the past year? Yes How often did you have a dri nk containing alcohol in the past year? 2 to 3 times a week (3 points) How many drinks did you have on a typical day when you were drinking in the past year? 1 or 2 drinks (0 point) Points 3 Interpretation Positive Tobacco use other than smoking: Question Answer Notes Are you an other tobacco user? No Problems Problem Type SNOMED Code ICD Code Onset Dates Problem Status W/U Status Risk Notes Problem Localized, primary osteoarthritis of the ankle and/or foot (987034425) Primary osteoarthrit is, right ankle and foot (M19.071) Active confirmed Problem Localized, primary osteoarthritis of the ankle and/or foot (368960434) Primary osteoarthrit is, left ankle and foot (M19.072) Active confirmed Problem Hughes's neuroma of right foot (772434922296877) Hughes's neuroma of right foot (G57.61) Active confirmed Problem Hughes's neuroma of left foot (280386554118666) Hughes's neuroma of left foot (G57.62) Active confirmed Problem Ulcer of toe of right foot (disorder) (8012826657994194 1) Skin ulcer of toe of right foot, limited to breakdown of skin (L97.511) Active confirmed Problem Ulcer of toe of left foot (disorder) (9568196360205615 2) Skin ulcer of toe of left foot, limited to breakdown of skin (L97.521) Active confirmed Improvement Problem Skin ulcer of toe of right foot with fat layer exposed (L97.512) Active confirmed Problem Skin ulcer of toe of left foot with fat layer exposed (L97.522) Active confirmed Vital Signs Height 5ft6in in 11/15/2023 Weight 185 lbs 11/15/2023 BMI 29.86 kg/m2 11/15/2023 Procedures Procedure Date Ordered Date Performed Result Body Sit e 79083-NXUJGJY SKIN/TISSUE 10/25/2023 N/A 44839- Debride <25 sq cm 11/15/2023 N/A 36752-DPH 10/11/2023 N/A Encounters Encounter Location Date Provider Diagnosis [address] [address] 10/11/2023 Louise Black Ingrown nail L60.[address] [address] 10/25/2023 Louise Black Skin ulcer of toe of left foot with fat layer exposed L97.[address] [address] 11/15/2023 Louise Black Skin ulcer of toe of left foot, limited to breakdown of skin L97.[address] [address] 10/25/2023 Louise Black [address] [place] [address] 11/01/2023 Louisenancy Gillespie [facility] [place] [address] [place] [address] 12/06/2023 Luoise Gillespie Assessments Encounter Date Diagnosis (ICD Code) Assessment Notes Treatment Notes Treatment Clinical Notes Section Notes 10/11/2023 Ingrown nail (ICD-10 - L60.0) 10/25/2023 Skin ulcer of toe of left foot with fat layer exposed (ICD-10 - L97.522) Patient Educated with: WOUND CARE INSTRUCTIONS.p df (WOUND CARE INSTRUCTIONS.p df) 11/15/2023 Skin ulcer of toe of left foot, limited to breakdown of skin (ICD-10 - L97.521) Improvement Patient Educated with: WOUND CARE INSTRUCTIONS.p df (WOUND CARE INSTRUCTIONS.p df) 11/15/2023 Other Plan Of Treatment Pending Test Test Name Order Date 94173-Vndmbqou Plate 05/27/2023 76242-LSG 10/11/2023 97580- Debride <25 sq cm 06/14/2023 82239- Debride <25 sq cm 11/15/2023 92172-IFVNGQN SKIN/TISSUE 10/25/2023 Insurance Providers Payer Name Payer Address Payer Phone Subscriber Number Group Number Insured Name Patient Relationship to Insured Coverage Start Date Coverage End Date [facility] [address] [place] [address] [id number] Irwin Gillespie Spouse - patient is the spouse of the insured Medical (General) History Medical History History ICD Code Chicken pox Neuroma Surgical History Surgery Date(Month/Year) Left foot Inj 2009
--- OUTSIDE RECORDS SUMMARY | 2024-06-26 14:19 | XMS_ITS ---
Author Organization [facility] Address [address] [place] [address] Care Team Providers Care System Archive Analyst Name Role Phone Leonila GÓMEZ, Piper Peña Primary Care Provider Un available Louise Gillespie [phone] Encounters Encounter Location Date Provider Diagnosis [address] [address] 02/21/2024 Louise Gillespie Plan Of Treatment No Information Progress Notes * Jeri VASQUEZDOB:1970 ( 54 yo F)Acc No.[id number]:02/21/2024 Progress Note Patient:Jeri GAN Provider:?Louise Gillespie DPM :1970???Age:54 Y???Sex:Female D ate:02/21/2024 Address:[address] [place], [place] [address] Pcp:Brittney Triana Subjective: * Chief Complaints: * ??? * Medical History:? Objective: * Vitals:? Assessment: Plan: * Treatment: * Images: * The named appointment provid er may or may not be the originator of this progress note, and it is not deemed complete until electronically signed by the appointment provider. Sign off status: Pending * Provider:?Louise Gillespie DPM Date:?2023 Generated for Farhan guzmán/Raffi/eTransmitting on:?06/26/2024 02:19 PM EST
--- OUTSIDE RECORDS SUMMARY | 2024-06-26 14:20 | XMS_ITS ---
Author Organization [facility] Address [address] [place] [address] Care Team Providers Care Outpatient Psychiatrist Name Role Phone Leonila GÓMEZ, Piper Peña Primary Care Provider Un available Louise Gillespie [phone] Encounters Encounter Location Date Provider Diagnosis [address] [address] 03/06/2024 Louise Gillespie Plan Of Treatment No Information Progress Notes * Jeri VASQUEZDOB:1970 ( 54 yo F)Acc No.[id number]:03/06/2024 Progress Notes Patient:Jeri GAN Provider:?Louise Gillespie DPM :1970???Age:54 Y???Sex:Female D ate:03/06/2024 Address:[address] [place], [place] [id number] Pcp:Brittney Triana Subjective: * Chief Complaints: * [...]
== END 2024-06-26 14:30 | disposition home or self-care (01) ==
PROVIDERS: PCP Internal Medicine; Visit Provider Internal Medicine
DX: Z00.01 Encounter for general adult medical examination with abnormal findings (principal); Z12.4 Encounter for screening for malignant neoplasm of cervix; Z71.89 Other specified counseling; L60.0 Ingrowing nail; I83.812 Varicose veins of left lower extremity with pain; G57.63 Lesion of plantar nerve, bilateral lower limbs; M20.5X1 Other deformities of toe(s) (acquired), right foot; M20.5X2 Other deformities of toe(s) (acquired), left foot

== ENCOUNTER 2024-07-03 08:58 | Outpatient (REF) | payer OTHER, SELFPAY ==
--- OUTSIDE RECORDS SUMMARY | 2024-07-03 09:34 | XMS_ITS ---
Author Organization [facility] Address [address] [place] [address] Care Team Providers Care Manager Retirement Name Role Phone Leonila GÓMEZ, Piper Peña Primary Care Provider Un available Louise Gillespie [phone] Encounters Encounter Location Date Provider Diagnosis [address] [address] 02/21/2024 Louise Gillespie Plan Of Treatment No Information Progress Notes * Jeri VASQUEZDOB:1970 ( 54 yo F)Acc No.[id number]:02/21/2024 Progress Note Patient:Jeri GAN Provider:?Louise Gillespie DPM :1970???Age:54 Y???Sex:Female D ate:02/21/2024 Address:[address] [place], [place] [address] Pcp:Brittney Triana Subjective: * Chief Complaints: * ??? * Medical History:? Objective: * Vitals:? Assessment: Plan: * Treatment: * Images: * The named appointment provid er may or may not be the originator of this progress note, and it is not deemed complete until electronically signed by the appointment provider. Sign off status: Pending * Provider:?Louise Gillespie DPM Date:?2023 Generated for Farhan guzmán/Raffi/eTransmitting on:?07/03/2024 09:34 AM EST
--- OUTSIDE RECORDS SUMMARY | 2024-07-03 09:34 | XMS_ITS ---
Author Organization [facility] Address [address] [place] [address] Care Team Providers Care Manufacturing Supervisor 2Nd Shift Name Role Phone Leonila GÓMEZ, Piper Peña Primary Care Provider Un available Black, Louise Unavailable [phone] REASON FOR VISIT cx appt 02/21/24 and 03/06/24 Encounters Encounter Location Date Provider Diagnosis [facility] [address] [place] [address] 12/06/2023 Louise Black Plan Of Treatment No Information Progress Notes * CHRISTINA KristinamayurDOB:1970 ( 53 yo F)Acc No.[id number]:12/06/2023 Patient:?Jeri Vasquez :1970???Age:53 Y???Sex:Female Address:[address] [place] [address], [address] * true * Date:? Generated for Farhan guzmán/Raffi/eTransmitting on:?07/03/2024 09:34 AM EST
--- OUTSIDE RECORDS SUMMARY | 2024-07-03 09:34 | XMS_ITS | Patient Health Record ---
Author Organization [facility] Address [address] [facility] [place] [address] Care Team Providers Care Glass Cleaning Machine Tender Name Role Phone Leonila GÓMEZ, Piper Peña Primary Care Provider Un available Black, Louise Unavailable [phone] Allergies No Known Allergies Reason For Referral [...] primary osteoarthritis of the ankle and/or foot (132775333) Primary osteoarthrit is, right ankle and foot (M19.071) Active confirmed Problem Localized, primary osteoarthritis of the ankle and/or foot (937509826) Primary osteoarthrit is, left ankle and foot (M19.072) Active confirmed Problem Hughes's neuroma of right foot (552660666114341) Hughes's neuroma of right foot (G57.61) Active confirmed Problem Hughes's neuroma of left foot (141037610476125) Hughes's neuroma of left foot (G57.62) Active confirmed Problem Ulcer of toe of right foot (disorder) (9047515226198566 1) Skin ulcer of toe of right foot, limited to breakdown of skin (L97.511) Active confirmed Problem Ulcer of toe of left foot (disorder) (0785375525645304 2) Skin ulcer of toe of left [...] Ordered Date Performed Result Body Sit e 57432-ZFE 10/11/2023 N/A 70015-RNFYIXH SKIN/TISSUE 10/25/2023 N/A 28823- Debride <25 sq cm 11/15/2023 N/A Encounters Encounter Location Date Provider Diagnosis [address] [address] 10/11/2023 Louise Black Ingrown nail L60.[address] [address] 10/25/2023 Louise Black Skin ulcer of toe of left foot with fat layer exposed L97.[address] [address] 11/15/2023 Louise Black Skin ulcer of toe of left foot, limited to breakdown of skin L97.[address] [address] 10/25/2023 Louise Black [address] [place] [address] 11/01/2023 Louisenancy Gillespie [facility] [address] [place] [address] 12/06/2023 Louise Gillespie Assessments Encounter Date Diagnosis (ICD Code) [...] Treatment Pending Test Test Name Order Date 14743-Ulptqsvv Plate 05/27/2023 29451-IVC 10/11/2023 27038- Debride <25 sq cm 06/14/2023 77932- Debride <25 sq cm 11/15/2023 14888-CZRFAIP SKIN/TISSUE 10/25/2023 Insurance Providers Payer Name Payer Address Payer Phone Subscriber Number Group Number Insured Name Patient Relationship to Insured Coverage Start Date Coverage End Date [facility] [address] [place] [id number] Irwin Gillespie Spouse - patient is the spouse of the insured Medical (General) History Medical History History ICD Code Chicken pox Neuroma Surgical History Surgery Date(Month/Year) Left foot Inj 2009
--- OUTSIDE RECORDS SUMMARY | 2024-07-03 09:34 | XMS_ITS ---
Author Organization [facility] Address [address] [place] [address] Care Team Providers Care Promotions Manager Name Role Phone Leonila GÓMEZ, Piper Peña Primary Care Provider Un available Louise Gillespie [phone] Encounters Encounter Location Date Provider Diagnosis [address] [address] 03/06/2024 Louise Gillespie Plan Of Treatment No Information Progress Notes * Jeri VASQUEZDOB:1970 ( 54 yo F)Acc No.[id number]:03/06/2024 Progress Notes Patient:Jeri GAN Provider:?Louise Gillespie DPM :1970???Age:54 Y???Sex:Female D ate:03/06/2024 Address:[address] [place], [place] [phone] Pcp:Brittney Triana Subjective: * Chief Complaints: * [...]
--- OUTSIDE RECORDS SUMMARY | 2024-07-03 09:34 | XMS_ITS | Continuity of Care Document ---
Author Name [facility] Organization [facility] Care Team Providers Care Laboratory Analyst Name Role Phone [facility] Unavailable Unavailable Medications Combined list of outpatient [...] ORAL, [employer], 500 ea. BOTTLE Active [id number] 4 2023 20 Pharmac y Data Transac tion Service Facilit y DOXYCYCLINE HYCLATE (DOXYCYCLIN E HYCLATE), 100 MG, CAPSULE, ORAL, JONATHAN,Yulisa NC., 500 ea. BOTTLE Active [id number] 4 2023 10 Pharmac y Data Transac tion Service Facilit y Social History Combined list of available smoking, tobacco, and other social history from Department of Defense and Veterans Affairs facilities. Social History Type Response Date Comment Sourc e This section is an empty social history section. [facility]
[2024-07-03 11:20] LABS: Alanine Aminotransferase 16 U/L (0-31); Anion Gap 10 (12-20); Aspartate Amino Transferase 24 U/L (5-31); Blood Urea Nitrogen 13 mg/dL (9-16); Calcium 9.5 mg/dL (8.4-10.2); Carbon Dioxide 27 mmol/L (22-29); Chloride 108 mmol/L (96-108); Cholesterol 178 mg/dL (<200); Estimated Glomerular Filt Rate > 60; Glucose Fasting 77 mg/dL (60-99); HDL Cholesterol 53 mg/dL (>40); LDL Cholesterol Calculated 106 mg/dL (<100); Potassium 4.4 mmol/L (3.3-5.1); Sodium 141 mmol/L (135-145); Triglycerides 95 mg/dL (<150)
== END 2024-07-03 08:59 | disposition home or self-care (01) ==
LOC: HO.HMGCLDS 08:58
PROVIDERS: PCP Internal Medicine; Visit Provider Internal Medicine
DX: Z00.01 Encounter for general adult medical examination with abnormal findings (principal); Z71.89 Other specified counseling; Z13.1 Encounter for screening for diabetes mellitus; Z13.220 Encounter for screening for lipoid disorders; Z13.6 Encounter for screening for cardiovascular disorders
CPT/HCPCS: 36415; 80048; 80061; 82306; 84450; 84460

== ENCOUNTER 2024-07-05 09:41 | Outpatient (REF) | payer OTHER, SELFPAY ==
--- OUTSIDE RECORDS SUMMARY | 2024-07-05 11:01 | XMS_ITS ---
Author Organization [facility] Address [address] [place] [address] Care Team Providers Care Fire Suppression Captain Name Role Phone Leonila GÓMEZ, Piper Peña Primary Care Provider Un available Louise Gillespie [phone] Encounters Encounter Location Date Provider Diagnosis [address] [address] 02/21/2024 Louise Gillespie Plan Of Treatment No Information Progress Notes * Jeri VASQUEZDOB:1970 ( 54 yo F)Acc No.[id number]:02/21/2024 Progress Note Patient:Jeri GAN Provider:?Louise Gillespie DPM :1970???Age:54 Y???Sex:Female D ate:02/21/2024 Address:[address] [place], [place] [phone] Pcp:Brittney Triana Subjective: * Chief Complaints: * ??? * Medical History:? Objective: * Vitals:? Assessment: Plan: * Treatment: * Images: * The named appointment provid er may or may not be the originator of this progress note, and it is not deemed complete until electronically signed by the appointment provider. Sign off status: Pending * Provider:?Louise Gillespie DPM Date:?2023 Generated for Farhan guzmán/Raffi/eTransmitting on:?07/05/2024 11:01 AM EST
--- OUTSIDE RECORDS SUMMARY | 2024-07-05 11:01 | XMS_ITS ---
Author Organization [facility] Address [address] [place] [address] Care Team Providers Care Hydraulic Press In Operator Name Role Phone Leonila GÓMEZ, Piper Peña Primary Care Provider Un available Black, Louise Unavailable [phone] REASON FOR VISIT cx appt 02/21/24 and 03/06/24 Encounters Encounter Location Date Provider Diagnosis [facility] [address] [place] [address] 12/06/2023 Louise Black Plan Of Treatment No Information Progress Notes * CHRISTINA KristinamayurDOB:1970 ( 53 yo F)Acc No.[id number]:12/06/2023 Patient:?Jeri Vasquez :1970???Age:53 Y???Sex:Female Address:[address] [place] [address], [address] * true * Date:? Generated for Farhan guzmán/Raffi/eTransmitting on:?07/05/2024 11:01 AM EST
--- OUTSIDE RECORDS SUMMARY | 2024-07-05 11:02 | XMS_ITS | Continuity of Care Document ---
Author Name [facility] Organization [facility] Care Team Providers Care Branch Lending Manager Name Role Phone [facility] Unavailable Unavailable Medications Combined list of outpatient [...] ORAL, [employer], 500 ea. BOTTLE Active [id number] 4 2023 20 Pharmac y Data Transac tion Service Facilit y DOXYCYCLINE HYCLATE (DOXYCYCLIN E HYCLATE), 100 MG, CAPSULE, ORAL, JONATHAN,Yulisa NC., 500 ea. BOTTLE Active [id number] 4 2023 10 Pharmac y Data Transac tion Service Facilit y Social History Combined list of available smoking, tobacco, and other social history from Department of Defense and Veterans Affairs facilities. Social History Type Response Date Comment Sourc e This section is an empty social history section. [facility]
--- OUTSIDE RECORDS SUMMARY | 2024-07-05 11:02 | XMS_ITS ---
Author Organization [facility] Address [address] [place] [address] Care Team Providers Care Wheel Inspector Name Role Phone Leonila GÓMEZ, Piper Peña Primary Care Provider Un available Louise Gillespie [phone] Encounters Encounter Location Date Provider Diagnosis [address] [address] 03/06/2024 Louise Gillespie Plan Of Treatment No Information Progress Notes * Jeri VASQUEZDOB:1970 ( 54 yo F)Acc No.[id number]:03/06/2024 Progress Notes Patient:Jeri GAN Provider:?Louise Gillespie DPM :1970???Age:54 Y???Sex:Female D ate:03/06/2024 Address:[address] [place], [place] [address] Pcp:Brittney Triana Subjective: * Chief Complaints: * [...]
--- OUTSIDE RECORDS SUMMARY | 2024-07-05 11:02 | XMS_ITS | Patient Health Record ---
Author Organization [facility] Address [address] [facility] [place] [address] Care Team Providers Care Link Knitting Machine Operator Name Role Phone Leonila GÓMEZ, Piper Peña Primary Care Provider Un available Black, Louise Unavailable [phone] Allergies No Known Allergies Reason For Referral [...] primary osteoarthritis of the ankle and/or foot (280257125) Primary osteoarthrit is, right ankle and foot (M19.071) Active confirmed Problem Localized, primary osteoarthritis of the ankle and/or foot (318591983) Primary osteoarthrit is, left ankle and foot (M19.072) Active confirmed Problem Hughes's neuroma of right foot (907593331903696) Hughes's neuroma of right foot (G57.61) Active confirmed Problem Hughes's neuroma of left foot (025819946229371) Hughes's neuroma of left foot (G57.62) Active confirmed Problem Ulcer of toe of right foot (disorder) (9123812136125079 1) Skin ulcer of toe of right foot, limited to breakdown of skin (L97.511) Active confirmed Problem Ulcer of toe of left foot (disorder) (8396645562851174 2) Skin ulcer of toe of left [...] Ordered Date Performed Result Body Sit e 40891-WUX 10/11/2023 N/A 12664-WLSPKCY SKIN/TISSUE 10/25/2023 N/A 09334- Debride <25 sq cm 11/15/2023 N/A Encounters Encounter Location Date Provider Diagnosis [address] [address] 10/11/2023 Louise Black Ingrown nail L60.[address] [address] 10/25/2023 Louise Black Skin ulcer of toe of left foot with fat layer exposed L97.[address] [address] 11/15/2023 Louise Black Skin ulcer of toe of left foot, limited to breakdown of skin L97.[address] [address] 10/25/2023 Louise Black [address] [place] [address] 11/01/2023 Louisenancy Gillespie [facility] [place] [address] [place] [address] 12/06/2023 Louise Gillespie Assessments Encounter Date Diagnosis [...] Treatment Pending Test Test Name Order Date 14622-Tpbcbcmr Plate 05/27/2023 81780-FTQ 10/11/2023 66944- Debride <25 sq cm 06/14/2023 37084- Debride <25 sq cm 11/15/2023 56148-CKQNFTD SKIN/TISSUE 10/25/2023 Insurance Providers Payer Name Payer Address Payer Phone Subscriber Number Group Number Insured Name Patient Relationship to Insured Coverage Start Date Coverage End Date [facility] [address] [place] [id number] Irwin Gillespie Spouse - patient is the spouse of the insured Medical (General) History Medical History History ICD Code Chicken pox Neuroma Surgical History Surgery Date(Month/Year) Left foot Inj 2009
== END 2024-07-05 09:42 | disposition home or self-care (01) ==
LOC: HO.MAMMO 09:41
PROVIDERS: PCP Internal Medicine; Visit Provider Internal Medicine
DX: Z12.31 Encounter for screening mammogram for malignant neoplasm of breast (principal)
CPT/HCPCS: 77063; 77067

== ENCOUNTER → 2024-07-05 10:00 | Outpatient (BNV) | payer OTHER, SELFPAY | PROVIDERS: PCP Internal Medicine; Visit Provider Internal Medicine | DX: Z12.31 Encounter for screening mammogram for malignant neoplasm of breast (principal) | CPT/HCPCS: 77063; 77067 ==